=== PATIENT | female | born 1960 | race Caucasian/White ===

== ENCOUNTER 2019-06-30 12:10 | Outpatient (CLI) | payer OTHER ==
[~2019-06-30 12:10] MED LIST: Iopamidol 370 76% 100 ML VIAL ONE
--- NOTE | 2019-06-30 13:38 | CT ---
EXAM: CT Abdomen Pelvis W Con PROVIDED CLINICAL HISTORY: Abdominal pain COMPARISON: None FINDINGS: Visualized lung bases are free of significant opacity. There is a simple cyst involving the left kidney. The solid abdominal organs demonstrate an otherwise unremarkable CT appearance. 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 There is mural thickening, internal fluid density and fat stranding about the appendix compatible with changes of acute appendicitis. There is a small amount of free pelvic fluid. There is no evidence for free air or focal fluid collection. The osseous structures demonstrate no concerning lytic or blastic lesions. IMPRESSION: Findings compatible with acute appendicitis. Findings communicated to the referring clinician 1:29 PM 06/30/2019.
== END 2019-06-30 12:11 | disposition home or self-care (01) ==
LOC: MADCT 12:10
PROVIDERS: ATTEND Family Medicine
DX: R10.31 Right lower quadrant pain (principal); K35.80 Unspecified acute appendicitis
CPT/HCPCS: 36415; 74177; 82565; Q9967